=== PATIENT | female | born 1960 | race Caucasian/White ===

== ENCOUNTER 2016-06-03 10:19 | Inpatient (IN) ==
--- NOTE | 2016-06-03 07:45 | Discharge Summary ---
<Lesli Copeland - Last Filed: 06/03/16 09:58> Date of Encounter: 06/03/16 - Discharge Diagnosis (1) Arthritis of knee, left Priority: Primary Status: Acute - Discharge Medications Home Medications: Aspirin Enteric Coated [Aspirin EC] 325 mg PO DAILY #21 tablet. 06/03/16 [Rx] Cholecalciferol (D-3) [Vitamin D] 2,000 unit PO DAILY 06/03/16 [History] Cyanocobalamin (Vitamin B-12) [Vitamin B-12] 3,000 unit SL DAILY 06/03/16 [ History] Levothyroxine [Synthroid] 50 mcg PO 0630 06/03/16 [History] OxyCODONE Immed Rel [Roxicodone 5 MG] 5 - 10 mg PO Q6HR PRN #40 tablet 06/03/16 [Rx] Pramipexole [Mirapex] 0.5 mg PO TID 06/03/16 [History] Valsartan [Diovan] 160 mg PO DAILY 06/03/16 [History] Allergies/Adverse Reactions: Allergies Erythromycin Base Adverse Reaction (Verified 06/03/16 10:57) Rash Penicillins [PCN] Adverse Reaction (Verified 06/03/16 10:57) Rash Sulfa (Sulfonamide Antibiotics) Adverse Reaction (Verified 06/03/16 10:57) Rash Primary care physician: Chantell Mcgarry - Patient Status Disposition: Transfer Inpatient Rehab Fac Condition: Good - Discharge Instructions Follow Up With: Lesli Ruelas DO [Primary Care Provider] - - Hospital Course Hospital course: Ms. Camarillo is a 55 year old female - Time Spent with Patient Total time spent providing and/or coordinating discharge services: <Kendall Mccallum - Last Filed: 06/06/16 06:27> Date of Encounter: 06/06/16 Time of Encounter: 06:26 - Discharge Diagnosis (1) Arthritis of knee, left Priority: Primary Status: Acute (2) Asthma Priority: Secondary Status: Chronic Qualifiers: Asthma severity: unspecified severity Asthma complication type: uncomplicated Qualified Code(s): J45.909 - Unspecified asthma, uncomplicated (3) Thyroid disease Priority: Secondary Status: Chronic Primary care physician: Chantell Mcgarry - Patient Status Functional capacity at discharge: uses cane/walker Overall status at discharge: patient is progressing back to baseline - Hospital Course Hospital course: Ms. Camarillo is a 55 year old female The patient had an uneventful postoperative course. They received antibiotics and physical therapy and were discharged in stable condition. There will follow -up in the office in 2 weeks. Aspirin DVT prophylaxis - Time Spent with Patient Total time spent providing and/or coordinating discharge services:
[2016-06-03] MEDS ORDERED: Albuterol 2.5 MG/3 ML NEBULIZER ONE (10:42)
--- NOTE | 2016-06-03 10:46 | History & Physical Report ---
Date of Encounter: 06/03/16 Time of Encounter: 10:46 24 Hour HP Update - Instructions Instructions: If the History and Physical is less than 30 days old and was completed prior to A.M. admission and or procedure and has NOT been updated on calendar day of procedure please complete this update prior to performing procedure. - Update Patient reports changes in Medical Condition: No Changes in assessment/condition: No Changes in Medication: No Preop tests/diagnostics Reviewed: Yes Surgery Remains Indicated: Yes Consent for Planned Operative Procedure(s) Verified: Yes - Pre-Operative Checklist Preoperative Checklist Indicated: No Prophylactic Antibiotic Ordered: Yes Is VTE Prophylaxis Indicated?: Yes
[2016-06-03] MEDS ORDERED: Albuterol 2.5 MG/3 ML NEBULIZER IH ONE (10:56)
[2016-06-03] MEDS ORDERED: Ringers Solution, Lactated 1,000 ML IVC SCH ×2 (11:00→15:12)
[2016-06-03] MEDS ORDERED: CeFAZolin Pre 2,000 MG/100 ML 2,000 MG/100 ML BAG IVPB ONE (11:00)
[2016-06-03] MEDS ORDERED: *HR* Propofol 200 MG/20 ML VIAL IVP ONE (11:35)
[2016-06-03] MEDS ORDERED: *HR* Midazolam HCl 2 MG/2 ML VIAL ONE (11:35)
[2016-06-03] MEDS ORDERED: *HR* FentaNYL (PF) 100 MCG/2 ML VIAL ONE (11:35)
[2016-06-03] MEDS ORDERED: Lidocaine -MPF 2% 2 ML VIAL ONE (11:39)
--- NOTE | 2016-06-03 12:17 | Anesthesia Evaluation PreOp ---
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 06/03/16 [Rx] Cholecalciferol (D-3) [Vitamin D] 2,000 unit PO DAILY 06/03/16 [History] Cyanocobalamin (Vitamin B-12) [Vitamin B-12] 3,000 unit SL DAILY 06/03/16 [ History] Levothyroxine [Synthroid] 50 mcg PO 0630 06/03/16 [History] OxyCODONE Immed Rel [Roxicodone 5 MG] 5 - 10 mg PO Q6HR PRN #40 tablet 06/03/16 [Rx] Pramipexole [Mirapex] 0.5 mg PO TID 06/03/16 [History] Valsartan [Diovan] 160 mg PO DAILY 06/03/16 [History] Allergies Erythromycin Base Adverse Reaction (Verified 06/03/16 10:57) Rash Penicillins [PCN] Adverse Reaction (Verified 06/03/16 10:57) Rash Sulfa (Sulfonamide Antibiotics) Adverse Reaction (Verified 06/03/16 10:57) Rash - Meds/Allergy Pre-op Review Medications Reviewed: Yes Allergies Reviewed: Yes Beta Blockers on Current Med List: No Anesthesia Results - Labs Laboratory Tests 05/23/16 05/23/16 05/23/16 08:21 08:21 08:21 Hgb 13.8 Hct 41.8 Plt Count 384 PT 11.6 INR 1.1 APTT 28.9 Sodium 140 Potassium 4.2 BUN 17 Creatinine 0.70 - Imaging EKG: report reviewed (SR) Anesthesia Exam O2 Sat Height 1.52 m Height 1.52 m Height 1.52 m Weight 83.461 kg Weight 83.461 kg Weight 83.461 kg O2 Sat by Pulse Oximetry 95 Vital Signs Temp Pulse Resp BP Pulse Ox 99.1 F 107 18 146/86 95 06/03/16 10:35 06/03/16 10:35 06/03/16 10:35 06/03/16 10:35 06/03/16 10:35 Height: 5'2 Weight: 184 lbs NPO (# of Hours): MN - HEENT Pupil (Motor): Pupils equal, EOMI Mallampati: II Teeth: Normal Oral Opening: Greater than 3 - SEM[employer] D[employer] LOADER LOC: Oriented [employer]CTOR [employer] LOADER Motor: Normal RUE, Normal LUE, Normal RLE, Normal LLE, Normal Face [employer] LO[employer]ER Sensory: Normal: RUE, LUE, RLE, LLE, Face - Cardiac Rhythm: Regular Murmur: None JVD: No Carotid Bruit: No - Pulmonary Breath Sounds: bilateral Clear Respiratory Effort: Symmetrical Anesthesia Assess/Plan ASA Score: 2 Modified Powell Scale for Level of Consciousness: Cooperative, oriented, and tranquil Anesthetic Plan: General, Regional Monitoring Plan: Standard Monitors Recovery Plan: PACU (Discussed GA and RA, agrees to proceed)
[2016-06-03] MEDS ORDERED: Tetracaine/PF 20 MG/2 ML AMPUL SPINA ONE (12:24)
--- NOTE | 2016-06-03 12:46 | Anesthesia Procedures ---
Date of Encounter: 06/03/16 Time of Encounter: 12:15 Procedures: Anesthesia - Nerve Block Procedure Date: 06/03/16 Time: 12:40 Pre-op Diagnosis: Left Knee Arthropathy Surgical Procedure: Left TKA Checklist: Correct Patient Identifier Correct side: Left Blood Thinner: No Monitor Applied: EKG, BP, Pulse Oximetry Supplemental Oxygen via Nasal Cannula (L/min): 2 Sedation: Versed (mg): 2 Sedation: Fentanyl (mcg): 50 Indication: Post Op Analgesia Pre-op Neuro Deficits: No Block Type: Femoral Catheter placed: No Depth at skin (cm): 4 Sterile Technique: Yes Ultrasound used: Yes Anatomy identified: Yes Visual spread of Local: Yes Neuro Stimulation: Yes Nerve Stimulator Range: >0.4 - 0.6 mA Blood on Needle Aspiration: No Smooth Injection of Local: Yes Pain with Injection of Local: No Prep: Chlorhexadine Needle: 22 x 50 mm Stimuplex Local: Tetracaine, Other (Bupivacaine 0.5%) Volume (cc): 30 Number of Attempts: 1 Complications: None/effective block Vitals: Vital Signs/O2 Sat/Glucose, Most Current Temp Pulse Resp BP Pulse Ox 06/03/16 12:39 102 143/74 98 06/03/16 10:35 99.1 F 107 18 146/86 95
[2016-06-03] MEDS ORDERED: Ondansetron 4 MG/2 ML VIAL ONE (13:21)
[2016-06-03] MEDS ORDERED: Dexamethasone 4 MG/ML VIAL ONE (13:21)
[2016-06-03] MEDS ORDERED: *HR* HYDROmorphone 2 MG/ML SYRINGE ONE (13:22)
[2016-06-03] MEDS ORDERED: *HR* Labetalol 100 MG/20 ML MDV IVP PRN (13:26)
[2016-06-03] MEDS ORDERED: Ondansetron 4 MG/2 ML VIAL IVP ONE (13:26)
[2016-06-03] MEDS ORDERED: *HR* HYDROmorphone (PF) 1 MG/ML SYRINGE IVP PRN (13:26)
[2016-06-03] MEDS ORDERED: *HR* Promethazine 25 MG/ML VIAL IVP PRN (13:26)
--- NOTE | 2016-06-03 13:40 | Orthopedic Operative Note ---
Date of procedure: 06/03/16 Pre-op diagnosis: Left knee arthritis Post-op diagnosis: same Procedure: Procedure: Left Total knee replacement Estimated blood loss: 200 cc Hardware: Arthrex Femur: 4 Tibia: 3 PS insert: 11 Patella: 37 Exam Under anesthesia: Full motion of instability Procedural Notes: Grade 3 arthritic changes medial compartment patellofemoral joint Operative procedure: The patient was brought to the operating room and placed on the operating room table. After general anesthesia was administered the operative knee was examined. Findings were noted in the exam under anesthesia. The operative extremity was prepped and draped in sterile surgical fashion. The patient received IV antibiotics prior to skin incision. A standard midline incision was made centered over the patella. The incision was made through the skin and subcutaneous tissue. A medial parapatellar tendon approach was performed. Care was taken to preserve tissue along the medial aspect of the patella. And to protect the patella tendon. The deep MCL was released off the medial tibia. The infra patella fat pad was excised. Knee was brought into flexion. Patient noted to have grade 3 arthritic changes medial compartment patellofemoral joint. The entry hole was made for the intramedullary femoral guide. The guide was seated in 6 degrees of valgus. Anterior cut was made followed by the distal cut. The ACL the PCL the medial and the lateral menisci were excised. The tibia was subluxed forward. The entry hole was made for the intramedullary tibial guide. Guide was seated to resect 2 mm off the more abnormal side. The knee was brought into flexion the distal femur was sized to a 4. The femoral guide was seated, the anterior cut was made followed by the posterior condylar cut, followed by the chamfer cuts. The finishing guide was seated the box cut was made and the lug holes were drilled. The tibia was sized to a 3, the tibial tray was seated and prepared with the large drill followed by the fin cutter. Trial reduction revealed full extension no varus valgus instability with the appropriate 11 PS Sherin. The patella was everted and cut was made at the level of the insertion of the quadriceps and patella tendon. The patella was sized 37 the guide was seated and the lug holes are drilled. Trial reduction revealed excellent patella tracking. All trial components were removed all bony surfaces were irrigated. The tibia was cemented first followed by the femur. The 11 PS Sherin was seated and the knee was brought into full extension. The patella was cemented and held in place with the patellar holding clamp. After the cement had hardened, the knee sat for 2 minutes with a Betadine saline solution. The knee was then irrigated out with 2 L of pulse irrigation. The extensor mechanism was closed with #2 FiberWire suture and #2 PDS suture. The subcutaneous tissue was then irrigated and closed deep with #1 PDS suture superficially with 0 PDS suture and skin was closed with skin sammy and Dermabond. The patient was then placed in a sterile dressing and a postoperative brace extubated and transferred to recovery room in stable condition. Anesthesia: NIKHIL Surgeon: Kendall Mccallum Supervisor [employer] Department: Lesli Copeland
[2016-06-03] MEDS ORDERED: Ketorolac 30 MG/ML VIAL ONE (13:46)
[2016-06-03 14:30] LABS: Hematocrit 36.6 % (35.3-44.9); Hemoglobin 12.3 g/dL (11.5-15.4)
[2016-06-03] MEDS ORDERED: Albuterol Neb 1.25 MG/3 ML VIAL IH ONE (15:12)
[2016-06-03] MEDS ORDERED: Acetaminophen 325 MG TABLET PO PRN (15:12)
[2016-06-03] MEDS ORDERED: Temazepam 15 MG CAPSULE PO PRN (15:12)
[2016-06-03] MEDS ORDERED: Naloxone 0.4 MG/ML INJ IVP PRN (15:12)
[2016-06-03] MEDS ORDERED: Sennosides 8.6 MG TABLET PO PRN (15:12)
[2016-06-03] MEDS ORDERED: *HR* OxyCODONE Immed Rel 5 MG TABLET PO PRN (15:12)
[2016-06-03] MEDS ORDERED: MOM Conc 10 ML UD.LIQ PO PRN (15:12)
[2016-06-03] MEDS ORDERED: Ondansetron 4 MG/2 ML VIAL IVP PRN (15:12)
[2016-06-03] MEDS: *HR* OxyCODONE Immed Rel 5 MG TABLET PO PRN ×2 (15:39→20:01)
[2016-06-03] MEDS: *HR* Enoxaparin 30 MG/0.3 ML SYRINGE SQ SCH (17:28)
[2016-06-03] MEDS ORDERED: *HR* Enoxaparin 30 MG/0.3 ML SYRINGE SQ SCH (18:00)
[2016-06-03] MEDS: ceFAZolin 2,000 MG in D5% in Water 100 ML IVPB SCH (22:43)
[2016-06-04] MEDS: *HR* OxyCODONE Immed Rel 5 MG TABLET PO PRN ×4 (04:09→21:44)
[2016-06-04] MEDS: *HR* Enoxaparin 30 MG/0.3 ML SYRINGE SQ SCH ×2 (05:08→17:29)
[2016-06-04 06:05] LABS: Hematocrit 36.1 % (35.3-44.9); Hemoglobin 11.8 g/dL (11.5-15.4)
[2016-06-04 06:19] LABS: BUN/Creatinine Ratio 23 (6-26); Blood Urea Nitrogen 15 mg/dL (7-20); Calcium 9.3 mg/dL (8.6-10.8); Carbon Dioxide 24 mEq/L (19-29); Chloride 103 mEq/L (98-109); Glucose 127 mg/dL (70-99); Osmolality,Calculated 288 (280-300); Potassium 4.6 mEq/L (3.5-4.5); Sodium 138 mEq/L (136-145); eGFR For African Americans > 60 (> 60); eGFR For Non-African Americans > 60 (> 60)
--- NOTE | 2016-06-04 06:27 | Orthopedics Progress Note ---
Date of Encounter: 06/04/16 Time of Encounter: 06:27 - Assessment and Plan (1) Arthritis of knee, left Current Visit: Yes Status: Acute (2) Asthma Current Visit: Yes Status: Chronic Qualifiers: Asthma severity: unspecified severity Asthma complication type: uncomplicated Qualified Code(s): J45.909 - Unspecified asthma, uncomplicated (3) Thyroid disease Current Visit: Yes Status: Chronic Subjective Interval history: Patient was seen this morning doing well without complaints. Afebrile vital signs stable. Operative extremity: Neurovascularly intact Dressing clean dry and intact Calves nontender Assessment and plan: Continue with postoperative care Hematocrit 36 Objective Vital signs: Vital Signs Temp Pulse Resp BP Pulse Ox 06/04/16 03:59 97.9 F 81 15 111/52 96 06/04/16 02:00 97.8 F 76 17 117/76 97 06/04/16 00:08 97.8 F 76 17 117/76 97 06/03/16 22:00 97.8 F 76 17 117/76 97 06/03/16 20:08 97.5 F L 73 16 124/76 97 06/03/16 20:00 98.1 F 74 17 123/75 97 06/03/16 18:26 97.5 F L 71 12 97/52 97 06/03/16 17:49 76 14 99/58 97 06/03/16 17:26 97.5 F L 76 14 99/58 97 06/03/16 17:08 14 97 06/03/16 16:31 97.6 F 82 12 121/72 97 06/03/16 15:50 97.5 F L 77 12 129/75 97 06/03/16 15:17 95 06/03/16 15:16 97.7 F 84 14 124/68 95 06/03/16 14:55 98.1 F 85 16 134/77 94 L 06/03/16 14:45 84 16 117/70 97 06/03/16 14:35 98.1 F 84 12 117/80 96 06/03/16 14:25 86 16 105/66 94 L 06/03/16 14:15 86 16 125/69 99 06/03/16 14:05 98.7 F 94 20 118/63 95 06/03/16 12:39 102 143/74 98 06/03/16 10:35 99.1 F 107 18 146/86 95 Intake and Output 06/03/16 06/03/16 06/04/16 15:59 23:59 07:59 Intake Total 300 / 300 Output Total 200 / 200 800 / 800 Balance -200 / -200 300 / 300 -800 / -800 Intake: Oral 300 / 300 Output: Urine 800 / 800 Estimated Blood Loss 200 / 200 Other: Weight 83.461 kg - Labs CBC & BMP: 06/04/16 05:50 06/04/16 05:50 Labs: Abnormal lab results Potassium 4.6 mEq/L (3.5-4.5) H 06/04/16 05:50 Glucose 127 mg/dL (70-99) H 06/04/16 05:50 - VTE Documentation of Mechanical Device: Venous foot pump, device Consult Discharge Plan - Plan Referrals: Lesli Ruelas DO [Primary Care Provider] -
[2016-06-04] MEDS: ceFAZolin 2,000 MG in D5% in Water 100 ML IVPB SCH (08:42)
[2016-06-04] MEDS: Valsartan 160 MG TABLET PO SCH (08:43)
[2016-06-04] MEDS: CYANOCOBALAMIN SL SCH (08:43)
[2016-06-04] MEDS: Cholecalciferol (D-3) 1,000 UNIT TABLET PO SCH (08:43)
[2016-06-04] MEDS: *HR* HYDROmorphone (PF) 1 MG/ML SYRINGE IVP PRN (19:29)
[2016-06-05] MEDS: *HR* Enoxaparin 30 MG/0.3 ML SYRINGE SQ SCH ×2 (05:39→17:20)
[2016-06-05] MEDS: *HR* OxyCODONE Immed Rel 5 MG TABLET PO PRN ×5 (05:39→21:31)
[2016-06-05 06:29] LABS: Hematocrit 35.3 % (35.3-44.9); Hemoglobin 11.6 g/dL (11.5-15.4)
[2016-06-05 06:44] LABS: BUN/Creatinine Ratio 23 (6-26); Blood Urea Nitrogen 15 mg/dL (7-20); Calcium 9.4 mg/dL (8.6-10.8); Carbon Dioxide 28 mEq/L (19-29); Chloride 100 mEq/L (98-109); Glucose 122 mg/dL (70-99); Osmolality,Calculated 288 (280-300); Potassium 4.3 mEq/L (3.5-4.5); Sodium 138 mEq/L (136-145); eGFR For African Americans > 60 (> 60); eGFR For Non-African Americans > 60 (> 60)
[2016-06-05] MEDS: Valsartan 160 MG TABLET PO SCH (07:57)
[2016-06-05] MEDS: CYANOCOBALAMIN SL SCH (07:58)
[2016-06-05] MEDS: Cholecalciferol (D-3) 1,000 UNIT TABLET PO SCH (08:00)
--- NOTE | 2016-06-05 10:11 | Orthopedics Progress Note ---
Date of Encounter: 06/05/16 Time of Encounter: 10:11 - Assessment and Plan (1) Arthritis of knee, left Current Visit: Yes Status: Acute (2) Asthma Current Visit: Yes Status: Chronic Qualifiers: Asthma severity: unspecified severity Asthma complication type: uncomplicated Qualified Code(s): J45.909 - Unspecified asthma, uncomplicated (3) Thyroid disease Current Visit: Yes Status: Chronic Subjective Interval history: Patient was seen this morning doing well without complaints. Afebrile vital signs stable. Operative extremity: Neurovascularly intact Dressing clean dry and intact Calves nontender Assessment and plan: Continue with postoperative care Hematocrit 35 Objective Vital signs: Vital Signs Temp Pulse Resp BP Pulse Ox 06/05/16 06:23 98.8 F 104 18 123/74 93 L 06/05/16 02:06 98.8 F 94 15 110/66 92 L 06/04/16 19:34 98.3 F 102 18 143/76 96 06/04/16 14:38 97.9 F 86 18 118/75 94 L 06/04/16 10:36 97.8 F 75 18 120/78 93 L Intake and Output 06/04/16 06/05/16 06/05/16 23:59 07:59 15:59 Intake Total 240 / 240 Balance 240 / 240 Intake: Oral 240 / 240 Other: Meal Breakfast Percent of Meal Consumed 25% # Voids 1 - Labs CBC & BMP: 06/05/16 06:14 06/05/16 06:14 Labs: Abnormal lab results Glucose 122 mg/dL (70-99) H 06/05/16 06:14 - VTE Documentation of Mechanical Device: Venous foot pump, device Consult Discharge Plan - Plan Referrals: Lesli Ruelas DO [Primary Care Provider] -
[2016-06-05] MEDS: *HR* HYDROmorphone (PF) 1 MG/ML SYRINGE IVP PRN (10:49)
[2016-06-06] MEDS: *HR* OxyCODONE Immed Rel 5 MG TABLET PO PRN ×3 (01:35→09:44)
[2016-06-06] MEDS: *HR* Enoxaparin 30 MG/0.3 ML SYRINGE SQ SCH (05:27)
--- NOTE | 2016-06-06 06:27 | Orthopedics Progress Note ---
Date of Encounter: 06/06/16 Time of Encounter: 06:27 - Assessment and Plan (1) Arthritis of knee, left Current Visit: Yes Status: Acute (2) Asthma Current Visit: Yes Status: Chronic Qualifiers: Asthma severity: unspecified severity Asthma complication type: uncomplicated Qualified Code(s): J45.909 - Unspecified asthma, uncomplicated (3) Thyroid disease Current Visit: Yes Status: Chronic Subjective Interval history: Patient was seen this morning doing well without complaints. Afebrile vital signs stable. Operative extremity: Neurovascularly intact Dressing clean dry and intact Calves nontender Assessment and plan: Continue with postoperative care Discharge today Objective Vital signs: Vital Signs Temp Pulse Resp BP Pulse Ox 06/06/16 00:00 99.2 F 97 16 120/67 97 06/05/16 20:33 99.8 F H 102 16 161/81 99 06/05/16 15:17 98.6 F 103 18 118/71 93 L 06/05/16 12:48 95 129/79 06/05/16 11:07 98.5 F 74 18 103/65 93 L 06/05/16 10:50 97 124/76 Intake and Output 06/05/16 06/05/16 06/06/16 15:59 23:59 07:59 Intake Total 360 / 360 100 / 100 250 / 250 Output Total 275 / 275 Balance 360 / 360 100 / 100 -25 / -25 Intake: IV Fluids 100 / 100 Oral 360 / 360 250 / 250 Output: Urine 275 / 275 Other: Meal Lunch Percent of Meal Consumed 100% - Labs CBC & BMP: 06/05/16 06:14 06/05/16 06:14 Labs: Abnormal lab results Glucose 122 mg/dL (70-99) H 06/05/16 06:14 - VTE Documentation of Mechanical Device: Venous foot pump, device Consult Discharge Plan - Plan Referrals: Lesli Ruelas DO [Primary Care Provider] -
[2016-06-06] MEDS: Valsartan 160 MG TABLET PO SCH (08:49)
[2016-06-06] MEDS: Cholecalciferol (D-3) 1,000 UNIT TABLET PO SCH (08:50)
[2016-06-06] MEDS: CYANOCOBALAMIN SL SCH (08:50)
[2016-06-06 10:59] VITALS: BP 115/69
== END 2016-06-06 13:00 | DRG 470 ==
LOC: SAMDAY 10:19 → 3NENU 15:08
PROVIDERS: ADMIT Orthopaedic Surgery; ATTEND Orthopaedic Surgery